=== PATIENT | female | born 1985 | race Caucasian/White ===

== ENCOUNTER 2018-04-04 10:02 | Day surgery (SDC) | payer MEDICARE ==
[2018-04-03 14:14] VITALS: BMI 28.3
[2018-04-04] MEDS ORDERED: Midazolam HCl 2 mg/2 ml Vial ONE (10:49)
[2018-04-04] MEDS ORDERED: Fentanyl 100 MCG/2 ML VIAL ONE (12:55)
[2018-04-04] MEDS ORDERED: Promethazine HCl 25 MG/ML VIAL ONE (13:08)
--- NOTE | 2018-04-04 16:15 | MRI ---
MRI CERVICAL SPINE WITHOUT CONTRAST: HISTORY: Brachial neuritis. Neck pain x1.5 years. COMPARISON: None. TECHNIQUE: Cervical spine MRI is performed without intravenous Gadolinium administration. Multisequential, mult iplanar imaging is performed. FINDINGS: Examination is done under anesthesia. Straightening of normal cervical lordosis is presumed to be po sitional. No evidence of ligamentous injury or vertebral body edema. The visualized brain parenchymal, cervicomedullary junction, cervical cord, and upper thoracic cord h ave normal size and signal intensity. C2-C3: No significant central canal stenosis. The neural foramina are patent. C3-C4: No significant central canal stenosis. Mild right foraminal narrowing. Patent left neural f oramen. C4-C5: No significant disk osteophyte complex. No significant central canal stenosis. The neural f oramina are patent bilaterally. C5-C6: No significant disk osteophyte complex. No significant central canal stenosis. The neural f oramina are patent bilaterally. C6-C7: No significant central canal stenosis. The neural foramina are patent bilaterally. C7-T1: No significant central canal stenosis. Patent neural foramina bilaterally. IMPRESSION: No significant central canal stenosis or foraminal narrowing. POS: [facility]
--- NOTE | 2018-04-04 16:20 | MRI ---
MRI LUMBAR SPINE WITHOUT CONTRAST: History: Low back pain. Symptoms x 1.5 years. Comparison: None. FINDINGS: There is straightening of the normal lumbar lordosis which may be due to positioning given the patien t's exam was done under anesthesia. There are intrinsic T1 and T2 hyperintensities at T12 and L1, may represent small hemangiomas. No significant STIR hyperintensity to suggest vertebral body edema or l igamentous injury. Symmetric signal intensity of the psoas muscles. Appropriate signal intensity in the visualized solid organs. Probable cyst and follicles involving the right ovary, incompletely evaluated. Conus medulla ris terminates at the inferior aspect of T12. T12-L1: Adequate disc hydration. No significant central canal stenosis or foraminal narrowing. L1-2: Adequate disc hydration. No significant central canal stenosis. Neural foramina are patent. L2-3: Adequate disc hydration. No significant central canal stenosis. Neural foramina are patent. L3-4: Adequate disc hydration. No significant central canal stenosis. Neural foramina are patent. L4-5: Desiccation with mild loss of disc space height. Minimal generalized disc bulge with a central T2 and STIR hyperintense lesion likely representing a small annular fissure. Disc material abuts but does not obscure the traversing left L5 nerve root. No significant mass effect on the right subarticu lar zone. Mild right and left foraminal narrowing. L5-S1: No significant central canal stenosis or neural foraminal narrowing. IMPRESSION: 1. Annular tear at L4-5. Disc material abuts but does not obscuring the traversing left L5 nerve root . 2. Probable cyst in the right ovary, incompletely evaluated. Nonemergent follow up ultrasound in 4-6 weeks to ensure resolution. POS: [facility]
== END 2018-04-04 14:05 | disposition home or self-care (01) ==
LOC: SDC/OP 10:02
PROVIDERS: ATTEND Physician Assistant
DX: M54.12 Radiculopathy, cervical region (principal); M51.16 Intervertebral disc disorders with radiculopathy, lumbar region; M47.814 Spondylosis without myelopathy or radiculopathy, thoracic region; G89.4 Chronic pain syndrome; G43.909 Migraine, unspecified, not intractable, without status migrainosus; Z79.899 Other long term (current) drug therapy; Z98.84 Bariatric surgery status; Z88.0 Allergy status to penicillin; Z88.1 Allergy status to other antibiotic agents; Z88.8 Allergy status to other drugs, medicaments and biological substances; Z91.013 Allergy to seafood; Z91.040 Latex allergy status; Z98.890 Other specified postprocedural states
CPT/HCPCS: 72141; 72148; 96374; 96375; J2250; J2550; J3010

== ENCOUNTER 2020-08-12 13:41 | Emergency (ER) | payer MEDICARE, MEDICAID | END 2020-08-12 18:48 | disposition left against medical advice (07) | LOC: ERS 13:41 | DX: Z53.21 Procedure and treatment not carried out due to patient leaving prior to being seen by health care provider (principal) ==

== ENCOUNTER 2020-09-10 19:55 | Emergency (ER) | payer MEDICARE, MEDICAID ==
[~2020-09-10 19:55] MED LIST: Magnevist 469MG/ML 20 ML VIAL ONE
[2020-09-10] MEDS ORDERED: Fentanyl 100 MCG/2 ML VIAL ONE (21:35)
[2020-09-10] MEDS ORDERED: Midazolam HCl 2 mg/2 ml Vial ONE (22:12)
[2020-09-11] MEDS ORDERED: Fentanyl 100 MCG/2 ML VIAL ONE (00:07)
[2020-09-11] MEDS ORDERED: Morphine 2 MG/ML VIAL ONE ×2 (00:30)
[2020-09-11] MEDS ORDERED: Cyclobenzaprine 10 MG TAB ONE (00:52)
== END 2020-09-11 01:00 | disposition home or self-care (01) ==
LOC: ERS 19:55
DX: M54.5 Low back pain (principal); G89.29 Other chronic pain; G47.30 Sleep apnea, unspecified; G47.00 Insomnia, unspecified; F17.210 Nicotine dependence, cigarettes, uncomplicated; J45.909 Unspecified asthma, uncomplicated; Z79.899 Other long term (current) drug therapy
CPT/HCPCS: 72158; 96372; 96374; 96375; A9579; J2250; J2270; J3010